=== PATIENT | male | born 1980 | race Caucasian/White ===

== ENCOUNTER 2017-11-23 10:07 | Emergency (ER) | payer OTHER ==
[~2017-11-23] VITALS: Ht 160 cm; Wt 72.7 kg
[2017-11-23] MEDS: KETOROLAC TROMETHAMINE 60 MG/2 ML VIAL IM ONE ×2 (10:59→11:03)
[2017-11-23] MEDS ORDERED: LORazepam 2 MG/ML VIAL ONE (12:44)
[2017-11-23] MEDS ORDERED: HALOPERIDOL LACTATE 5 MG/ML VIAL IM ONE (12:45)
[2017-11-23] MEDS ORDERED: DiphenhydrAMINE HCL 50 MG/ML VIAL IM ONE (12:45)
[2017-11-23] MEDS ORDERED: LORazepam 2 MG/ML VIAL IM ONE (12:45)
[2017-11-23] MEDS ORDERED: HALOPERIDOL LACTATE 5 MG/ML VIAL ONE (12:45)
[2017-11-23] MEDS ORDERED: DiphenhydrAMINE HCL 50 MG/ML VIAL ONE (12:45)
[2017-11-23 13:20] VITALS: BP 137/95
== END 2017-11-23 13:00 | disposition short-term general hospital (02) ==
LOC: EDBD 10:09 → EMS 10:09
DX: S02.609A Fracture of mandible, unspecified, initial encounter for closed fracture (principal); F22 Delusional disorders; F15.10 Other stimulant abuse, uncomplicated; F12.90 Cannabis use, unspecified, uncomplicated; F17.210 Nicotine dependence, cigarettes, uncomplicated; Z59.0 Homelessness; Y04.0XXA Assault by unarmed brawl or fight, initial encounter; Y93.89 Activity, other specified; Y92.89 Other specified places as the place of occurrence of the external cause; Y99.8 Other external cause status
CPT/HCPCS: 70486; 96372; 99291; J1200; J1630; J1885; J2060

== ENCOUNTER 2018-04-20 10:23 | Emergency (ER) | payer OTHER ==
[~2018-04-20 10:23] MED LIST: BENZ1TAB10 PO; DIVA-78 PO; OLAN10TA3 PO; RISP3 PO; RISPC50 IM
== END 2018-04-20 12:20 | disposition left against medical advice (07) ==
LOC: EMS 10:24
DX: F29 Unspecified psychosis not due to a substance or known physiological condition (principal); Z53.21 Procedure and treatment not carried out due to patient leaving prior to being seen by health care provider

== ENCOUNTER 2018-09-01 11:02 | Emergency (ER) | payer OTHER ==
[~2018-09-01] VITALS: Ht 160 cm; Wt 68.2 kg
[2018-09-01] MEDS ORDERED: LORA0.5T2 PO (11:32)
[2018-09-01] MEDS ORDERED: PANT40TA25 PO (11:32)
[2018-09-01] MEDS ORDERED: ARIP10TA8 PO (11:32)
[2018-09-01] MEDS ORDERED: LITH300CRT PO (11:32)
[2018-09-01] MEDS ORDERED: HALO5TAB2 PO (11:32)
[2018-09-01 13:44] VITALS: BP 125/84
[2018-09-01] MEDS ORDERED: LORazepam 2 MG TABLET PO ONE (13:45)
== END 2018-09-01 14:17 | disposition home or self-care (01) ==
LOC: EMS 11:04
DX: R68.84 Jaw pain (principal); F20.9 Schizophrenia, unspecified; F17.210 Nicotine dependence, cigarettes, uncomplicated; F12.90 Cannabis use, unspecified, uncomplicated; F15.90 Other stimulant use, unspecified, uncomplicated; Z59.0 Homelessness; Z79.899 Other long term (current) drug therapy
CPT/HCPCS: 70486

== ENCOUNTER 2018-12-26 19:47 | Emergency (ER) | payer OTHER ==
[~2018-12-26] VITALS: Ht 165.1 cm; Wt 75.0 kg
[~2018-12-26 19:47] MED LIST changes: +ARIP10TA8 PO; +HALO5TAB2 PO; +LITH300CRT PO; +LORA0.5T2 PO; +PANT40TA25 PO
[2018-12-26 22:22] LABS: BASOPHILS % (AUTO) 0.6 % (0.0-2.0); EOSINOPHILS % (AUTO) 1.1 % (1.0-6.0); HEMOGLOBIN 14.9 g/dL (13.5-17.5); LYMPHOCYTES # (AUTO) 1.5 K/uL (1.0-4.8); LYMPHOCYTES % (AUTO) 20.6 % (22.0-44.0); MEAN CORPUSCULAR HEMOGLOBIN 30.8 pg (26.0-34.0); MEAN CORPUSCULAR HGB CONC 33.1 G/dL (31.0-37.0); MEAN CORPUSCULAR VOLUME 93 fL (80-100); MONOCYTES # (AUTO) 0.6 K/uL (0.1-1.0); MONOCYTES % (AUTO) 7.9 % (2.0-9.0); NEUTROPHILS % (AUTO) 69.8 % (40.0-70.0); PLATELET COUNT (AUTO) 166 K/uL (150-450); RED BLOOD CELL COUNT(AUTO) 4.84 MIL/uL (4.50-5.90)
[2018-12-26 22:56] LABS: ALANINE AMINOTRANSFERASE 356 U/L (12-78); ALKALINE PHOSPHATASE 106 U/L (46-116); ANION GAP 14 mmol/L (8-16); ASPARTATE AMINOTRANSFERASE 140 U/L (15-37); BILIRUBIN,TOTAL 0.3 mg/dL (0.1-1.0); CALCIUM, TOTAL 9.4 mg/dL (8.8-10.5); CARBON DIOXIDE 20 mmol/L (22-29); CHLORIDE 99 mmol/L (98-107); CREATININE 1.25 mg/dL (0.60-1.30); GLOMERULAR FILTR. RATE CALC > 60 mL/min (>60); POTASSIUM 4.3 mmol/L (3.5-5.1); SODIUM SERUM 133 mmol/L (136-145); TOTAL PROTEIN, SERUM 7.3 g/dL (6.4-8.2)
[2018-12-26 22:59] LABS: GLUCOSE,RANDOM 469 mg/dL (70-110)
[2018-12-26 23:03] LABS: UREA NITROGEN, BLOOD 17 mg/dL (7-18)
[2018-12-26 23:11] LABS: AMPHET/METH SCREEN,URINE NEGATIVE (NEGATIVE); BARBITURATE SCREEN, URINE NEGATIVE (NEGATIVE); BENZODIAZEPINES SCREEN,URINE NEGATIVE (NEGATIVE); CANNABINOID SCREEN,URINE POSITIVE (NEGATIVE); COCAINE SCREEN,URINE NEGATIVE (NEGATIVE); METHADONE SCREEN, URINE NEGATIVE (NEGATIVE); OPIATE SCREEN,URINE NEGATIVE (NEGATIVE)
[2018-12-26 23:13] LABS: PHENCYCLIDINE SCREEN,URINE NEGATIVE (NEGATIVE)
[2018-12-26] MEDS ORDERED: SODIUM CHLORIDE 0.9% 2,000 ML IV ONE (23:15)
[2018-12-26] MEDS ORDERED: INSULIN REGULAR, HUMAN 100 UNITS/ML IVP ONE (23:15)
[2018-12-26 23:31] LABS: ACETONE,BLOOD NEGATIVE (NEGATIVE)
[2018-12-26 23:37] LABS: LITHIUM 0.84 mmol/L (0.60-1.20)
[2018-12-26 23:43] LABS: VALPROIC ACID 5 mcg/mL (50-100)
[2018-12-27 01:57] LABS: GLUCOSE,POINT OF CARE 210 MG/DL (70-110)
[2018-12-27 04:10] VITALS: BP 137/77
== END 2018-12-27 04:30 | disposition home or self-care (01) ==
LOC: EMS 19:49
DX: F20.0 Paranoid schizophrenia (principal); G89.29 Other chronic pain; E86.0 Dehydration; E11.9 Type 2 diabetes mellitus without complications; F17.210 Nicotine dependence, cigarettes, uncomplicated; F12.90 Cannabis use, unspecified, uncomplicated; F19.90 Other psychoactive substance use, unspecified, uncomplicated; Z59.0 Homelessness
CPT/HCPCS: 36415; 80053; 80164; 80178; 80307; 82009; 82962; 85025; 96361; 96374; 99283; G0480; J1815; J7030

== ENCOUNTER 2019-03-11 17:49 | Emergency (ER) | payer OTHER ==
[~2019-03-11] VITALS: Ht 160 cm; Wt 72.7 kg
[~2019-03-11 17:49] MED LIST changes: +LORA-999 PO; -LORA0.5T2 PO
[2019-03-11] MEDS ORDERED: SODIUM CHLORIDE 0.9% 1,000 ML IV ONE (18:00)
[2019-03-11] MEDS ORDERED: GLIP5 PO (18:05)
[2019-03-11] MEDS ORDERED: METF-960 PO (18:05)
[2019-03-11] MEDS ORDERED: DIPH25 PO (18:05)
[2019-03-11 18:11] LABS: BASOPHILS % (AUTO) 0.5 % (0.0-2.0); EOSINOPHILS % (AUTO) 0.9 % (1.0-6.0); HEMATOCRIT 41.2 % (41-53); HEMOGLOBIN 14.3 g/dL (13.5-17.5); LYMPHOCYTES % (AUTO) 24.5 % (22.0-44.0); MEAN CORPUSCULAR HEMOGLOBIN 31.8 pg (26.0-34.0); MEAN CORPUSCULAR HGB CONC 34.6 G/dL (31.0-37.0); MEAN CORPUSCULAR VOLUME 92 fL (80-100); MONOCYTES # (AUTO) 0.6 K/uL (0.1-1.0); MONOCYTES % (AUTO) 7.6 % (2.0-9.0); NEUTROPHILS # (AUTO) 5.3 K/uL (1.8-7.7); NEUTROPHILS % (AUTO) 66.5 % (40.0-70.0); PLATELET COUNT (AUTO) 192 K/uL (150-450); RED BLOOD CELL COUNT(AUTO) 4.49 MIL/uL (4.50-5.90); RED CELL DISTRIBUTION WIDTH 13.9 % (11.5-14.5)
[2019-03-11 18:20] LABS: ANION GAP 10 mmol/L (8-16); CALCIUM, TOTAL 8.9 mg/dL (8.8-10.5); CARBON DIOXIDE 26 mmol/L (22-29); CHLORIDE 98 mmol/L (98-107); CREATININE 1.25 mg/dL (0.60-1.30); GLOMERULAR FILTR. RATE CALC > 60 mL/min (>60); GLUCOSE,RANDOM 161 mg/dL (70-110); POTASSIUM 4.1 mmol/L (3.5-5.1); SODIUM SERUM 134 mmol/L (136-145); UREA NITROGEN, BLOOD 13 mg/dL (7-18)
[2019-03-11 18:26] LABS: ALANINE AMINOTRANSFERASE 313 U/L (12-78); ALBUMIN 3.9 g/dL (3.4-5.0); ALKALINE PHOSPHATASE 66 U/L (46-116); ASPARTATE AMINOTRANSFERASE 110 U/L (15-37); BILIRUBIN,TOTAL 0.4 mg/dL (0.1-1.0); TOTAL PROTEIN, SERUM 7.6 g/dL (6.4-8.2)
[2019-03-11 18:34] LABS: GLUCOSE,POINT OF CARE 141 MG/DL (70-110)
[2019-03-11 19:43] LABS: AMPHET/METH SCREEN,URINE NEGATIVE (NEGATIVE); BARBITURATE SCREEN, URINE NEGATIVE (NEGATIVE); BENZODIAZEPINES SCREEN,URINE NEGATIVE (NEGATIVE); CANNABINOID SCREEN,URINE POSITIVE (NEGATIVE); COCAINE SCREEN,URINE NEGATIVE (NEGATIVE); METHADONE SCREEN, URINE NEGATIVE (NEGATIVE); OPIATE SCREEN,URINE NEGATIVE (NEGATIVE)
[2019-03-11 19:48] LABS: PHENCYCLIDINE SCREEN,URINE NEGATIVE (NEGATIVE)
[2019-03-11 21:15] VITALS: BP 113/61
== END 2019-03-11 22:49 | disposition home or self-care (01) ==
LOC: EMS 17:50
DX: F12.10 Cannabis abuse, uncomplicated (principal); R41.82 Altered mental status, unspecified; E11.9 Type 2 diabetes mellitus without complications; F20.9 Schizophrenia, unspecified; F17.210 Nicotine dependence, cigarettes, uncomplicated; F15.90 Other stimulant use, unspecified, uncomplicated; Z59.0 Homelessness; Z79.899 Other long term (current) drug therapy
CPT/HCPCS: 36415; 70450; 80053; 80307; 82962; 85025; 96360; 99284; 99406; G0480; J7030